=== PATIENT | male | born 1960 | race Caucasian/White ===

== ENCOUNTER 2019-10-23 08:27 | Day surgery (SDC) | payer BC ==
[~2019-10-23 08:27] MED LIST: DIAZEPAM 5 MG TABLET PO ONE
[2019-10-23] MEDS ORDERED: LIDOCAINE 1% W/EPI 1:200,000 MPF 30ML SQ ONE (11:37)
[2019-10-23] MEDS ORDERED: BUPIVACAINE 0.5% W/EPI MPF 30 ML VIAL SQ ONE (11:38)
--- NOTE | 2019-10-23 14:01 | Operative Note ---
DATE OF SURGERY: 10/23/2019 PREOPERATIVE DIAGNOSIS: Left carpal tunnel syndrome. POSTOPERATIVE DIAGNOSIS: Left carpal tunnel syndrome. OPERATION: Left carpal tunnel release. STAFF SURGEON: Chidi Contreras MD ANESTHESIA: Local. PREPARATION: Chloraprep. INDIVIDUAL CONSIDERATIONS: None. PROCEDURE: The patient was taken to the operating room and placed supine on the operating room table. His left arm was prepped and draped in the usual fashion. The patient had a 50/50 mixture of 1% lidocaine with epinephrine and 0.5% Marcaine with epinephrine infiltrated along the volar wrist longitudinal wrist crease. The limb was then elevated. Tourniquet was inflated to 250 mmHg. The patient had an incision along the volar wrist crease longitudinal and then just fading ulnarly as it crossed. Sharp dissection carried down through skin and subcutaneous tissues. Small veins were coagulated with a Bovie. Sharp dissection carried down through the palmar fascia and then carefully through the small adductor brevis and then through the transverse metacarpal fascia distally to the superficial arch and recurrent branch and proximally to the antebrachial fascia. There were no tumors in the carpal tunnel, and the median nerve was intact but hourglass and injected. After irrigation, the tourniquet was let down and hemostasis was obtained with a Bovie. The skin was then approximated with interrupted 4-0 nylon in a vertical mattress fashion. A sterile bulky compressive hand dressing was applied. The patient tolerated the procedure well. Needle and sponge counts were correct. Estimated blood loss was minimal. He was taken back to recovery in good condition. There were no complications. [facility]
== END 2019-10-23 12:10 | disposition home or self-care (01) ==
LOC: SUR 08:27
PROVIDERS: ATTEND Orthopaedic Surgery
DX: G56.02 Carpal tunnel syndrome, left upper limb (principal)
CPT/HCPCS: 64721; J3490